=== PATIENT | male | born 1960 | race Caucasian/White ===

== ENCOUNTER 2022-03-26 14:22 | Outpatient (CLI) | payer OTHER | END 2022-03-26 14:30 | disposition home or self-care (01) | LOC: LAB 14:22 | PROVIDERS: ATTEND Surgery | DX: D12.0 Benign neoplasm of cecum (principal); D37.4 Neoplasm of uncertain behavior of colon; R19.4 Change in bowel habit; Z03.818 Encounter for observation for suspected exposure to other biological agents ruled out ==